=== PATIENT | female | born 1965 | race Caucasian/White ===

== ENCOUNTER → 2016-04-19 | Outpatient (CLI) | payer OTHER ==
[~2016-04-19] MED LIST: BECL0.07 INH; FLUO40CA PO; HYDR200T42 PO; LEVO.1 PO; METH27 PO; NUCY100T4 PO; PRIL40CA PO; REQU2TAB3 PO; VALI5TAB PO
[2016-04-19 08:18] LABS: BICARBONATE 27.3 MEQ/L (21.0-32.0); FREE T4 1.14 NG/DL (0.76-1.46); HDL CHOLESTEROL 74.7 MG/DL (40.0-60.0); POTASSIUM 3.6 MEQ/L (3.5-5.1)
== END ==
LOC: CLAB 06:56
PROVIDERS: ATTEND Family Medicine
DX: E78.2 Mixed hyperlipidemia (principal); E03.9 Hypothyroidism, unspecified; R76.8 Other specified abnormal immunological findings in serum; N18.3 Chronic kidney disease, stage 3 (moderate); G25.81 Restless legs syndrome; G47.09 Other insomnia; Z68.33 Body mass index [BMI] 33.0-33.9, adult
CPT/HCPCS: 36415; 80048; 80061; 84439; 84443